=== PATIENT | female | born 1980 | race Two or more races ===

== ENCOUNTER → 2019-10-02 | Outpatient (CLI) | payer OTHER | END | disposition home or self-care (01) | LOC: PRENATAL 10:00 | PROVIDERS: ATTEND Obstetrics & Gynecology Maternal & Fetal Medicine | DX: O35.3XX0 Maternal care for (suspected) damage to fetus from viral disease in mother, not applicable or unspecified (principal); Z36.89 Encounter for other specified antenatal screening ==

== ENCOUNTER 2020-02-08 10:00 | Inpatient (IN) | payer OTHER ==
[~2020-02-08] VITALS: Ht 167.6 cm; Wt 87.1 kg
[2020-02-15] MEDS ORDERED: PRENATAL TABLE1 EAC1 PO (07:12)
[2020-02-18] MEDS ORDERED: IBUPROFEN800 MG PO (12:45)
[2020-02-18] MEDS ORDERED: HEMAX TABLET1 EACH PO (12:45)
[2020-02-18] MEDS ORDERED: ACETAMINOPHEN-1 EAC2 PO (12:45)
== END 2020-02-18 16:36 | disposition home or self-care (01) | DRG 785 ==
LOC: O/R 02-15 06:30 → OB/GYN 02-15 07:00 → SURG-SUITE 02-15 15:11
PROVIDERS: ADMIT Obstetrics & Gynecology; ATTEND Obstetrics & Gynecology
PROC: 0UB70ZZ Excision of Bilateral Fallopian Tubes, Open Approach (ICD-10-PCS; 2020-02-15)
PROC: 4A1HXFZ Monitoring of Products of Conception, Cardiac Rhythm, External Approach (ICD-10-PCS; 2020-02-15)
PROC: 3E033VJ Introduction of Other Hormone into Peripheral Vein, Percutaneous Approach (ICD-10-PCS; 2020-02-15)
PROC: 10D00Z1 Extraction of Products of Conception, Low, Open Approach (ICD-10-PCS; principal; 2020-02-15 07:00)
DX: O34.211 Maternal care for low transverse scar from previous cesarean delivery (principal); Z30.2 Encounter for sterilization; Z3A.39 39 weeks gestation of pregnancy; Z37.0 Single live birth